=== PATIENT | male | born 1975 | race Two or more races ===

== ENCOUNTER 2018-04-14 01:30 | Emergency (ER) | payer SELFPAY ==
[2018-04-14 01:37] VITALS: BP 117/82
--- NOTE | 2018-04-14 01:48 | ED Physician Documentation ---
History of Present Illness - Stated complaint Stated Complaint: FEVER/NAUSEA - Chief complaint Chief Complaint: Resp - History obtained from History obtained from: Patient - History of Present Illness Timing: How many days ago (1-2) Pain level now: 0 Improved by: no ameliorating factors Worsened by: no exacerbating factors - Additonal information Additional information: c/o 1-2 days of chills/sweats, diffuse myalgias, cough. Tmax 100.9. He describes post-tussive vomiting but is tolerating PO. He also describes poor appetite. Review of Systems Constitutional: reports: Fever, Chills, Myalgias, Sweats Cardiac: denies: Chest pain / pressure Respiratory: reports: Cough. denies: Dyspnea GI: reports: Vomiting (post-tussive vomiting). denies: Abdominal Pain, Nausea : reports: Frequency. denies: Dysuria Skin: denies: Rash Musculoskeletal: denies: Neck pain, Back pain PD PAST MEDICAL HISTORY - Past Medical History Cardiovascular: None Respiratory: None Endocrine/Autoimmune: None GI: GERD : None HEENT: None Psych: None Musculoskeletal: None Derm: None - Past Surgical History Past Surgical History: No - Present Medications Home Medications: Ambulatory Orders Medication Instructions Recorded Confirmed Omeprazole [PriLOSEC] 1 mg PO DAILY 08/19/15 08/19/15 Ondansetron Odt [Zofran] 4 mg TL Q6H PRN #10 tablet 08/19/15 raNITIdine [Zantac] 150 mg PO BID #60 tablet 08/19/15 - Allergies Allergies/Adverse Reactions: Allergies Allergy/AdvReac Type Severity Reaction Status Date / Time No Known Drug Allergies Allergy Verified 04/14/18 01:37 - Social History Does the pt smoke?: Yes Smoking Status: Current every day smoker Does the pt drink ETOH?: No Does the pt have substance abuse?: No - Immunizations Immunizations are current?: No - POLST Patient has POLST: No PD ED PE NORMAL - Vitals Vital signs reviewed: Yes - General General: Alert and oriented X 3, No acute distress (NAD for most of H+P except for brief episodes (lasting 10-15 seconds) of sudden violent shaking during which he remains awake, alert, and responsive, says he feels "chilled to the bone" during these episodes), Well developed/nourished - HEENT HEENT: Moist mucous membranes, Pharynx benign - Neck Neck: Supple, no meningeal sign - Cardiac Cardiac: RRR, No murmur, No gallop, No rub - Respiratory Respiratory: No respiratory distress, Clear bilaterally - Abdomen Abdomen: Soft, Non tender - Back Back: No CVA TTP - Derm Derm: Normal color, Warm and dry, No rash Results - Vitals Vitals: Vital Signs - 24 hr 04/14/18 01:35 Temperature 366 C H Heart Rate 75 Respiratory 18 Rate Blood Pressure 117/82 H O2 Saturation 98 Oxygen O2 Source Room air PD MEDICAL DECISION MAKING - ED course Complexity details: considered differential, d/w patient ED course: [employer] cough, clear lungs to auscultation bilaterally with normal pulse ox (98% room air). suspect bronchitis although with his c/o shaking chills, fever, and generalized myalgias, I recommended flu swab. Plan was to perform flu swab and then discharge with robitussin AC rx (and possibly Tamiflu, depending on flu swab result). Patient was agreeable with this and expressed satisfaction with plan (he thanked me for taking time to explain options with him). However, while I was evaluating another patient in ED, he suddenly decided to leave ED. He says he feels nothing is being done to make him more comfortable and refuses to elaborate as to what he means by this or what he feels can be done to make him more comfortable at this time. Departure - Departure Disposition: 07 Against Medical Advice Clinical Impression: Bronchitis Condition: Stable Discharge Date/Time: 04/14/18 02:35
== END 2018-04-14 02:35 | disposition left against medical advice (07) ==
LOC: ED 01:30
DX: F17.200 Nicotine dependence, unspecified, uncomplicated (principal); J40 Bronchitis, not specified as acute or chronic; Z53.20 Procedure and treatment not carried out because of patient's decision for unspecified reasons
CPT/HCPCS: 99282; 99283

== ENCOUNTER 2022-05-19 07:46 | Emergency (ER) | payer SELFPAY ==
[2022-05-19 08:38] LABS: BASOPHILS # (AUTO) 0.1 10^3/uL (0.0-0.1); BASOPHILS % (AUTO) 0.7 %; EOSINOPHILS % (AUTO) 0.5 %; HCT - HEMATOCRIT 43.2 % (42.0-52.0); HGB - HEMOGLOBIN 14.5 g/dL (14.0-18.0); LYMPHOCYTES # (AUTO) 1.9 10^3/uL (1.5-3.5); LYMPHOCYTES % (AUTO) 25.1 %; MEAN CORPUSCULAR HEMOGLOBIN 30.9 pg (27.0-31.0); MEAN CORPUSCULAR HGB CONC 33.6 g/dL (32.0-36.0); MEAN CORPUSCULAR VOLUME 92.1 fL (80.0-94.0); MEAN PLATELET VOLUME 9.7 fL (7.4-11.4); MONOCYTES # (AUTO) 0.4 10^3/uL (0.0-1.0); MONOCYTES % (AUTO) 5.1 %; NEUTROPHILS # (AUTO) 5.2 10^3/uL (1.5-6.6); NEUTROPHILS % (AUTO) 68.3 %; PLT - PLATELET COUNT 239 10^3/uL (130-450); RED BLOOD COUNT 4.69 10^6/uL (4.70-6.10); RED CELL DISTRIBUTION WIDTH 12.1 % (12.0-15.0); WHITE BLOOD COUNT 7.7 x10^3/uL (4.8-10.8)
[2022-05-19 08:50] LABS: ALBUMIN 4.1 g/dL (3.2-5.5); ALBUMIN/GLOBULIN RATIO 1.4 (1.0-2.2); BILIRUBIN,TOTAL 0.8 mg/dL (0.2-1.0); CREATININE 0.8 mg/dL (0.6-1.2)
--- NOTE | 2022-05-19 09:11 | XRAY Report ---
PROCEDURE: Chest 1 View X-Ray INDICATIONS: CP TECHNIQUE: One view of the chest was acquired. COMPARISON: None. FINDINGS: Surgical changes and devices: None. Lungs and pleura: No pleural effusions or pneumothorax. Lungs are clear. Mediastinum: Mediastinal contours appear normal. Heart size is normal. Bones and chest wall: No suspicious bony lesions. Overlying soft tissues appear unremarkable. IMPRESSION: No evidence acute pulmonary process. Reviewed by: Woodrow Jerez MD on 05/19/2022 9:10 AM [facility] Approved by: Woodrow Jerez MD on 05/19/2022 9:10 AM [facility] Station ID: [id number]
--- NOTE | 2022-05-19 09:36 | ED Physician Documentation ---
PD HPI CHEST PAIN - Stated complaint Stated Complaint: CHEST DISCOMFORT - Chief complaint Chief Complaint: Cardiac - History obtained from History obtained from: Patient - Additional information Additional information: Pt is a 46-year-old male presenting for evaluation of chest heaviness that has been intermittent since . Patient has noticed that his symptoms get worse during periods when he is smoking cigarettes and get better when he is cutting down on his smoking. This more recent episode has started since Tuesday. It has been constant. It is worse when he is actively smoking a cigarette. Pain does not radiate. He denies feeling short of breath. He has never been evaluated for this before and he denies any worsening causing him to come for evaluation today.He denies any vomiting, fever, hemoptysis, leg swelling or pain.He reports chronic abdominal issues related to numerous food intolerances but denies any current pain, nausea or recent vomiting. Review of Systems Constitutional: denies: Fever Cardiac: reports: Chest pain / pressure Respiratory: denies: Dyspnea, Cough GI: denies: Abdominal Pain, Vomiting, Diarrhea : denies: Dysuria Musculoskeletal: denies: Back pain Neurologic: denies: Headache PD PAST MEDICAL HISTORY - Past Medical History Past Medical History: Yes Cardiovascular: None Respiratory: None Endocrine/Autoimmune: None GI: GERD : None HEENT: None Psych: None Musculoskeletal: None Derm: None - Past Surgical History Past Surgical History: No - Present Medications Home Medications: Ambulatory Orders Medication Instructions Recorded Confirmed Omeprazole [PriLOSEC] 1 mg PO DAILY 08/19/15 05/19/22 EPINEPHrine [Epinephrine] 0.3 mg IJ ONCE PRN #2 dis.syr 11/03/21 05/19/22 - Allergies Allergies/Adverse Reactions: Allergies Allergy/AdvReac Type Severity Reaction Status Date / Time No Known Drug Allergies Allergy Verified 05/19/22 08:03 - Social History Does the pt smoke?: Yes Smoking Status: Current every day smoker Does the pt drink ETOH?: No Does the pt have substance abuse?: No - Immunizations Immunizations are current?: No - POLST Patient has POLST: No PD ED PE NORMAL - General General: Alert and oriented X 3, No acute distress, Well developed/nourished - HEENT HEENT: Atraumatic - Neck Neck: Supple, no meningeal sign - Cardiac Cardiac: RRR - Respiratory Respiratory: No respiratory distress, Clear bilaterally - Abdomen Abdomen: Normal bowel sounds, Soft, Non tender, Non distended - Derm Derm: Warm and dry - Extremities Extremities: No edema, No calf tenderness / cord Results - Vitals Vitals: Vital Signs - 24 hr 05/19/22 05/19/22 07:57 09:41 Temperature 37.1 C 36.8 C Heart Rate 53 L 49 L Respiratory 14 15 Rate Blood Pressure 128/82 H 114/70 O2 Saturation 100 99 Oxygen O2 Source Room air - EKG (time done) 0835 Rate: Rate (enter#) (48) Rhythm: Sinus bradycardia Intervals: No: Prolonged QT Ischemia: No: ST elevation c/w ischemia Compare to prior EKG: Old EKG unavailable - Labs Labs: Laboratory Tests 05/19/22 05/19/22 05/19/22 08:31 08:31 08:31 WBC 7.7 RBC 4.69 L Hgb 14.5 Hct 43.2 MCV 92.1 MCH 30.9 MCHC 33.6 RDW 12.1 Plt Count 239 MPV 9.7 Neut # (Auto) 5.2 Lymph # (Auto) 1.9 [place] # (Auto) 0.4 Eos # (Auto) 0.0 Baso # (Auto) 0.1 Absolute Nucleated RBC 0.00 Nucleated RBC % 0.0 Sodium 137 Potassium 4.0 Chloride 104 Carbon Dioxide 25 Anion Gap 8.0 BUN 11 Creatinine 0.8 Estimated GFR (MDRD) 103 Glucose 110 H Calcium 9.0 Total Bilirubin 0.8 AST 23 ALT 22 Alkaline Phosphatase 65 Troponin I High Sens 2.3 Total Protein 7.0 Albumin 4.1 Globulin 2.9 Albumin/Globulin Ratio 1.4 PD Medical Decision Making - ED course Complexity details: reviewed results, re-evaluated patient ED course: Patient presenting for evaluation of chest pain that has been intermittent since with no worsening. He has noted an association that his symptoms worsen when he is smoking. His EKG is reviewed here today. He has no other exam findings to suggest pericarditis and I feel this to be atypical for p ericarditis. His labs are also reviewed and his high-sensitivity troponin is negative. His symptoms have been ongoing for days and I do not think needs a repeat. Again his symptoms also seem atypical for ACS. His chest x-ray was reviewed by me with no acute findings. He has a PERC negative. I doubt a dissection. Due to pain that is not worsening or migratory.Patient has been resting comfortably here. Advised need for close follow-up with primary care doctor. He is advised on concerning symptoms to return for. Departure - Departure Disposition: 01 Home, Self Care Clinical Impression: Chest pain Condition: Stable Instructions: ED Chest Pain Atypical Unkn Cause, ED Smoking Cessation Follow-Up: Perez Love MD [Provider Admit Priv/Credential] - Comments: You were evaluated for chest pain. I would recommend close follow-up with your primary care doctor as you may need further testing such as a stress test To check your heart. I think it is also great that you are motivated to quit smoking and A primary care doctor can help you achieve this goal. If you have any new or worsening symptoms please consider return to the emergency department. Discharge Date/Time: 05/19/22 09:49
[2022-05-19 09:41] VITALS: BP 114/70
== END 2022-05-19 09:49 | disposition home or self-care (01) ==
LOC: ED 07:46
DX: R07.9 Chest pain, unspecified (principal); F17.210 Nicotine dependence, cigarettes, uncomplicated
CPT/HCPCS: 36415; 80053; 84484; 85025; 93005; 99284

== ENCOUNTER 2022-09-21 01:18 | Emergency (ER) | payer OTHER ==
[2022-09-21] MEDS ORDERED: ONDANSETRON ODT 4 MG TABLET TL STA (01:59)
--- NOTE | 2022-09-21 02:25 | ED Physician Documentation ---
PD HPI NVD - Stated complaint Stated Complaint: N/V/D - Chief complaint Chief Complaint: Abd Pain - History obtained from History obtained from: Patient - History of Present Illness Timing - onset: Today Timing - duration: Hours Timing - details: Gradual onset, Still present Associated symptoms: Abdominal pain, Loss of appetite Contributing factors: Bad food. No: Sick contact, Travel, Recent antibiotics, Alcohol use Improved by: Laying still Worsened by: Eating Similar symptoms before: Diagnosis (gastritis) Recently seen: Not recently seen - Additonal information Additional information: 46-year-old male with a history chronic of abdominal pain, nausea and vomiting that is episodic presents to the emergency department today with nausea and abdominal pain. He reports that since he was 6 years old he has had problems with his stomach and he has been in to see a primary care doctor about this he was started on some Carafate at 1 point which she took for about 3-1/2 weeks. He did not have complete resolution of his symptoms. He reports periodically having issue with vomiting and he does indicate that he uses cannabis but he does not get relief from hot water. He has never heard of cannabis hyperemesis. He indicates that his problems with his stomach began long before he ever used cannabis. He is in the process of referral for endoscopy.The patient has been on Prilosec and Carafate previously but continues to have issues with specific foods. He has a diet which is avoiding in specific foods he feels he is intolerant to gluten and sugar. Review of Systems Constitutional: denies: Fever, Chills Eyes: denies: Decreased vision, Photophobia Ears: denies: Ear pain Nose: denies: Rhinorrhea / runny nose, Congestion Throat: denies: Sore throat Cardiac: denies: Chest pain / pressure, Palpitations Respiratory: denies: Dyspnea, Cough GI: reports: Abdominal Pain, Nausea, Vomiting, Diarrhea. denies: Constipation : denies: Dysuria, Frequency PD PAST MEDICAL HISTORY - Past Medical History Cardiovascular: None Respiratory: None Endocrine/Autoimmune: None GI: GERD : None HEENT: None Psych: None Musculoskeletal: None Derm: None - Past Surgical History Past Surgical History: No - Present Medications Home Medications: Ambulatory Orders Medication Instructions Recorded Confirmed Omeprazole [PriLOSEC] 1 mg PO DAILY 08/19/15 05/19/22 EPINEPHrine [Epinephrine] 0.3 mg IJ ONCE PRN #2 dis.syr 11/03/21 05/19/22 Promethazine [Phenergan] 25 mg PO Q6H PRN #10 tab 09/21/22 - Allergies Allergies/Adverse Reactions: Allergies Allergy/AdvReac Type Severity Reaction Status Date / Time No Known Drug Allergies Allergy Verified 05/19/22 08:03 - Social History Does the pt smoke?: Yes Smoking Status: Current every day smoker Does the pt drink ETOH?: No Does the pt have substance abuse?: No - Immunizations Immunizations are current?: No - POLST Patient has POLST: No PD ED PE NORMAL - Vitals Vital signs reviewed: Yes (Hypertensive mild) - General General: Alert and oriented X 3, Well developed/nourished, Other (Corrugated tone and flattened affect consistent with pain 46-year-old male pillows appears older than his stated age) - HEENT HEENT: Atraumatic, PERRL, EOMI - Neck Neck: Supple, no meningeal sign, No bony TTP - Cardiac Cardiac: RRR, No murmur - Respiratory Respiratory: No respiratory distress, Clear bilaterally - Abdomen Abdomen: Normal bowel sounds, Soft, Non tender, Non distended, No organomegaly - Back Back: No CVA TTP, No spinal TTP - Derm Derm: Normal color, Warm and dry, No rash - Extremities Extremities: No deformity, No edema - Neuro Neuro: Alert and oriented X 3, life agent 2-12 intact, No motor deficit, No sensory deficit, Normal speech Eye Opening: Spontaneous Motor: Obeys Commands Verbal: Oriented GCS Score: 15 - Psych Psych: Normal mood Results - Vitals Vitals: Vital Signs - 24 hr 09/21/22 09/21/22 01:28 04:03 Temperature 36.8 C Heart Rate 51 L 61 Respiratory 18 15 Rate Blood Pressure 117/94 H 122/84 H O2 Saturation 99 97 Oxygen O2 Source Room air - Labs Labs: Laboratory Tests 09/21/22 09/21/22 02:56 02:56 WBC 5.5 RBC 5.17 Hgb 15.8 Hct 47.1 MCV 91.1 MCH 30.6 MCHC 33.5 RDW 11.9 L Plt Count 195 MPV 10.1 Neut # (Auto) [employer] Lymph # (Auto) [employer] Maury # (Auto) [employer] Eos # (Auto) [employer] Baso # (Auto) [employer] Absolute Nucleated RBC [employer] Total Counted 100 Band Neuts % (Manual) 2 Abnorm Lymph % (Manual) 2 Nucleated RBC % [employer] Neutrophils # (Manual) 2.4 Lymphocytes # (Manual) 2.6 Monocytes # (Manual) 0.4 Eosinophils # (Manual) 0.0 Basophils # (Manual) 0.1 Differential Comment MANUAL DIFFERENTIAL WBC Morphology NORMAL APPEARANCE Platelet Estimate NORMAL (130-450,000) Platelet Morphology NORMAL APPEARANCE RBC Morph Micro Appear NORMAL APPEARANCE Sodium 140 Potassium 4.4 Chloride 106 Carbon Dioxide 25 Anion Gap 9.0 BUN 14 Creatinine 0.8 Estimated GFR (MDRD) 103 Glucose 105 H Calcium 8.8 Total Bilirubin 0.5 AST 51 H ALT 57 Alkaline Phosphatase 71 Total Protein 7.6 Albumin 4.3 Globulin 3.3 Albumin/Globulin Ratio 1.3 Lipase 27 Procedures - IVC sono (time) 0150 Bedside IVC sono: IVC measures (cm) (1.24), IVC collapsed c insp (cm) (0.61), Dehydration (minimal and with normal collapsibilty index.) PD Medical Decision Making - ED course Complexity details: considered differential, d/w patient Reviewed Lab Results: We reviewed a complete blood count showing a normal white blood cell count normal hemoglobin hematocrit and platelets with normal indices. We reviewed the patient's chemistries which showed normal electrolytes normal kidney and liver function no evidence of pancreatitis. These benign-appearing laboratory results suggest that despite the pain and nausea no specific abnormality exists. I interrogated the inferior vena cava with POCUS and found the patient to have a normal collapsibility index and have only mildly decreased vessel size. He appears mildly dehydrated and does not require intravenous fluid. ED course: 46-year-old male with problems with his stomach chronically related to specific foods reports eating significant amount of arthur and having an issue with pain nausea and vomiting. He does not appear significantly dehydrated on interrogation of the inferior vena cava with POCUS and our efforts were turned toward relieving his nausea. He did not have much luck with use of Zofran under his tongue and he was administered Phenergan 10 mg orally which resolved his nausea. He was thankful for this. He is discharged with a prescription for some Phenergan and a recommendation to continue pursuit of endoscopy. Departure - Departure Disposition: 01 Home, Self Care Clinical Impression: Recurrent vomiting Gastritis Qualifiers: Gastritis type: unspecified gastritis Chronicity: chronic Gastritis bleeding: without bleeding Qualified Code(s): K29.50 - Unspecified chronic gastritis without bleeding Instructions: ED Diet Vomiting Diarrhea, ED PUD Vs Gastritis Follow-Up: [facility] [Provider Group] Prescriptions: Promethazine [Phenergan] 25 mg PO Q6H PRN #10 tab PRN Reason: Nausea / Vomiting Comments: [place], today it looks like you have a gastritis or irritation to the lining of your stomach and my recommendation for that is to use some Pepcid AC on a regular basis until your stomach is feeling better. I have E scribed some Phenergan to the [facility] in [place] for you to use for nausea when this occurs. My recommendation is to follow-up for scoping as previously planned. Discharge Date/Time: 09/21/22 04:04
[2022-09-21] MEDS ORDERED: PROMETHAZINE 25 MG TABLET PO STA (02:45)
[2022-09-21 03:01] LABS: BASOPHILS % (AUTO) 0.5 %; EOSINOPHILS % (AUTO) 0.7 %; HCT - HEMATOCRIT 47.1 % (42.0-52.0); HGB - HEMOGLOBIN 15.8 g/dL (14.0-18.0); LYMPHOCYTES % (AUTO) 46.6 %; MEAN CORPUSCULAR HEMOGLOBIN 30.6 pg (27.0-31.0); MEAN CORPUSCULAR HGB CONC 33.5 g/dL (32.0-36.0); MEAN CORPUSCULAR VOLUME 91.1 fL (80.0-94.0); MEAN PLATELET VOLUME 10.1 fL (7.4-11.4); MONOCYTES % (AUTO) 12.3 %; NEUTROPHILS % (AUTO) 39.7 %; PLT - PLATELET COUNT 195 10^3/uL (130-450); RED BLOOD COUNT 5.17 10^6/uL (4.70-6.10); RED CELL DISTRIBUTION WIDTH 11.9 % (12.0-15.0); WHITE BLOOD COUNT 5.5 x10^3/uL (4.8-10.8)
[2022-09-21 03:21] LABS: ALBUMIN 4.3 g/dL (3.2-5.5); ALBUMIN/GLOBULIN RATIO 1.3 (1.0-2.2); BILIRUBIN,TOTAL 0.5 mg/dL (0.2-1.0); CALCIUM 8.8 mg/dL (8.5-10.3); CREATININE 0.8 mg/dL (0.6-1.2); POTASSIUM 4.4 mmol/L (3.5-5.0); TOTAL PROTEIN 7.6 g/dL (6.7-8.2)
[2022-09-21 03:25] LABS: ABNORMAL LYMPHS % (MANUAL) 2 %; BAND NEUTROPHILS % (MANUAL) 2 %; BASOPHILS # (MANUAL) 0.1 10^3/uL (0-0.1); BASOPHILS % (MANUAL) 1 %; LYMPHOCYTES # (MANUAL) 2.6 10^3/uL (1.5-3.5); LYMPHOCYTES % (MANUAL) 46 %; MONOCYTES # (MANUAL) 0.4 10^3/uL (0.0-1.0); NEUTROPHILS # (MANUAL) 2.4 10^3/uL (1.5-6.6); PLATELET ESTIMATE, MANUAL NORMAL (130-450,000) (NORMAL); PLATELET MORPHOLOGY NORMAL APPEARANCE (NORMAL); RBC MORPHOLOGY (MULTIPLE) NORMAL APPEARANCE (NORMAL); WBC MORPHOLOGY (MULTIPLE) NORMAL APPEARANCE (NORMAL)
[2022-09-21 03:26] LABS: DIFFERENTIAL COMMENT MANUAL DIFFERENTIAL
[2022-09-21 04:05] VITALS: BP 122/84
== END 2022-09-21 04:04 | disposition home or self-care (01) ==
LOC: ED 01:18
DX: K29.50 Unspecified chronic gastritis without bleeding (principal); E86.0 Dehydration; F17.200 Nicotine dependence, unspecified, uncomplicated
CPT/HCPCS: 36415; 80053; 83690; 85025; 99283; 99284; Q0162; Q0169

== ENCOUNTER 2022-11-05 07:50 | Day surgery (SDC) | payer OTHER ==
[2022-11-05] MEDS ORDERED: LACTATED RINGERS 1,000 ML IV ONE ×2 (08:05→10:26)
--- NOTE | 2022-11-05 08:46 | ANESTHESIA ---
Pre-Anesthesia VS, & Labs - Diagnosis epigastric pain, colon screening exam - Procedure EGD and colonoscopy Vital Signs: Temp Pulse Resp BP Pulse Ox O2 Flow Rate 36.3 C L 57 L 16 105/70 95 0 11/05/22 08:05 11/05/22 08:05 11/05/22 08:05 11/05/22 08:05 11/05/22 08:05 11/05/22 08:05 Height: 5 ft 8 in Weight (kg): 61.3 kg Body Mass Index: 20.5 BMI Classification: Normal - NPO >8 hours Home Medications and Allergies Home Medications: Ambulatory Orders Sucralfate [Carafate] 1 tablet PO ACHS 11/04/22 Omeprazole [PriLOSEC] 20 mg PO DAILY 08/19/15 Sucralfate [Carafate] 1 tablet PO ACHS 11/04/22 Allergies/Adverse Reactions: Allergies Allergy/AdvReac Type Severity Reaction Status Date / Time No Known Drug Allergies Allergy Verified 11/05/22 08:24 Anes History & Medical History - Anesthetic History Anesthesia Complications: reports: No previous complications - Medical History Cardiovascular: reports: None Pulmonary: reports: None Gastrointestinal: reports: GERD Urinary: reports: Kidney stones Neuro: reports: Other (seizures as a teenager. Last seizure >20 years ago) Musculoskeletal: reports: None Endocrine/Autoimmune: reports: None Blood Disorders: reports: None Skin: reports: None Smoking Status: Current every day smoker (1/2 pack per day x 25 years) Psychosocial: reports: Cannabis (daily smoking) History of Cancer?: No - Surgical History Urologic: reports: Ureterolithotomy (stones) Exam General: Alert, Oriented x3, Cooperative, No acute distress Dental: WNL Mouth Openin Fingerbreadth Neck Mobility: Normal Mallampati classification: II Thyromental Distance: 4-6 cm Mental/Cognitive Status: Alert/Oriented X3, Normal for patient Plan Anesthesia Type: General, Total IV Consent for Procedure(s) Verified and Reviewed: Yes Code Status: Attempt Resuscitation ASA classification: 2-Mild systemic disease Is this case an emergency?: No
[2022-11-05] MEDS ORDERED: LIDOCAINE-PF 2% 10 ML AMP SUBQ ONE (09:02)
[2022-11-05] MEDS ORDERED: PROPOFOL 500 MG/50 ML 500 MG/50 ML VIAL ONE (09:02)
[2022-11-05] MEDS ORDERED: PROPOFOL 200 MG/20 ML VIAL IVP ONE (09:09)
--- NOTE | 2022-11-05 09:25 | HISTORY & PHYSICAL EXAMINATION ---
Chief Complaint - Chief Complaint Chief Complaint: here for egd and colonoscopy History of Present Illness - History Obtained From Records Reviewed: yes History obtained from: pt Exam Limitations: none - History of Present Illness HPI Comment/Other: history epigastric pain and possible celiac. no lower gi problems History - Past Medical History Cardiovascular: reports: None Respiratory: reports: None Neuro: reports: Other (seizures as a teenager. Last seizure >20 years ago) Endocrine/Autoimmune: reports: None GI: reports: GERD : reports: Kidney stones HEENT: reports: None Psych: reports: None Musculoskeletal: reports: None Derm: reports: None MRSA Hx?: No - POLST Patient has POLST: No Meds/Allgy - Home Medications Home Medications: Ambulatory Orders Medication Instructions Recorded Confirmed Omeprazole [PriLOSEC] 20 mg PO DAILY 08/19/15 11/04/22 Sucralfate [Carafate] 1 tablet PO ACHS 11/04/22 11/04/22 - Allergies Allergies/Adverse Reactions: Allergies Allergy/AdvReac Type Severity Reaction Status Date / Time No Known Drug Allergies Allergy Verified 11/05/22 08:24 Review of Systems - Other Findings Other Findings: 10 pt ros as above otherwise unremarkable Exam - Vital Signs Reviewed Vital Signs: Yes Vital Signs: Vital Signs x48h Temp Pulse Resp BP Pulse Ox O2 Flow Rate 11/05/22 08:05 36.3 C L 57 L 16 105/70 95 0 - Physical Exam General Appearance: positive: No acute distress, Alert Eyes Bilateral: positive: PERRL, EOMI, No scleral icterus ENT: positive: No signs of dehydration Neck: positive: No JVD, Trachea midline Respiratory: positive: No respiratory distress Cardiovascular: positive: Regular rate & rhythm Abdomen: positive: No distention Neurologic/Psychiatric: positive: Oriented x3 Conclusion/Plan - Problem List (1) Gastritis Conclusion/Plan: plan egd with biopsies plan colonoscopy for colon cancer screening. parq held and consent obtained
[2022-11-05] MEDS ORDERED: MIDAZOLAM 2 MG/2 ML VIAL ONE (09:41)
[2022-11-05 10:52] VITALS: BP 105/72
--- NOTE | 2022-11-05 11:11 | ANESTHESIA POST OP EVALUATION ---
Anesthesia Post Eval - Post Anesthesia Eval Vitals: Last Vital Signs Temp 36.2 C L 11/05/22 10:26 Pulse 54 L 11/05/22 10:39 Resp 15 11/05/22 10:39 BP 105/72 11/05/22 10:39 Pulse Ox 99 11/05/22 10:39 O2 Flow Rate 0 11/05/22 08:05 CV Function Including HR & BP: Stable Pain Control: Satisfactory Nausea & Vomiting: Negative Mental Status: Baseline Respiratory Status: Airway Patent Hydration Status: Satisfactory Anesthesia Complications: None
== END 2022-11-05 07:51 | disposition home or self-care (01) ==
LOC: SDS 07:50
PROVIDERS: ATTEND Surgery
PROC: 0DB58ZX Excision of Esophagus, Via Natural or Artificial Opening Endoscopic, Diagnostic (ICD-10-PCS; 2022-11-05)
PROC: 0DBL8ZX Excision of Transverse Colon, Via Natural or Artificial Opening Endoscopic, Diagnostic (ICD-10-PCS; 2022-11-05)
PROC: 0DB48ZX Excision of Esophagogastric Junction, Via Natural or Artificial Opening Endoscopic, Diagnostic (ICD-10-PCS; principal; 2022-11-05 09:00)
PROC: 0DB68ZX Excision of Stomach, Via Natural or Artificial Opening Endoscopic, Diagnostic (ICD-10-PCS; 2022-11-05 09:00)
DX: Z12.11 Encounter for screening for malignant neoplasm of colon (principal); K21.9 Gastro-esophageal reflux disease without esophagitis; K20.90 Esophagitis, unspecified without bleeding; D12.3 Benign neoplasm of transverse colon; F17.200 Nicotine dependence, unspecified, uncomplicated
CPT/HCPCS: 43239; 45385; J7120

== ENCOUNTER 2023-02-17 17:02 | Emergency (ER) | payer OTHER ==
--- NOTE | 2023-02-17 17:19 | ED Physician Documentation ---
PD HPI CHEST PAIN - Stated complaint Stated Complaint: CHEST PX - Chief complaint Chief Complaint: Cardiac - History obtained from History obtained from: Patient - Additional information Additional information: 47-year-old gentleman referred from clinic for chest pain. He has had chest pain for a year. It is nonexertional. Does get worse when he smokes cigarettes or inhales deeply. It is a dull pain in the left precordium, otherwise nonradiating. He has it most days but not all day. Denies pedal edema, calf pain, shortness of breath. PD PAST MEDICAL HISTORY - Past Medical History Cardiovascular: None Respiratory: None Neuro: Other Endocrine/Autoimmune: None GI: GERD : Kidney stones HEENT: None Psych: None Musculoskeletal: None Derm: None - Past Surgical History Past Surgical History: No - Present Medications Home Medications: Ambulatory Orders Medication Instructions Recorded Confirmed Omeprazole [PriLOSEC] 20 mg PO DAILY 08/19/15 11/04/22 Sucralfate [Carafate] 1 tablet PO ACHS 11/04/22 11/04/22 - Allergies Allergies/Adverse Reactions: Allergies Allergy/AdvReac Type Severity Reaction Status Date / Time No Known Drug Allergies Allergy Verified 11/05/22 08:24 - Social History Does the pt smoke?: Yes Smoking Status: Current every day smoker Does the pt drink ETOH?: No Does the pt have substance abuse?: No - Immunizations Immunizations are current?: No - POLST Patient has POLST: No PD ED PE NORMAL - Vitals Vital signs reviewed: Yes - General General: Alert and oriented X 3, No acute distress - Neck Neck: Supple, no meningeal sign, No bony TTP - Cardiac Cardiac: RRR, No murmur - Respiratory Respiratory: No respiratory distress, Clear bilaterally - Abdomen Abdomen: Non tender - Extremities Extremities: No edema, No calf tenderness / cord - Neuro Neuro: Alert and oriented X 3, Normal speech - Psych Psych: Normal mood, Normal affect Results - Vitals Vitals: Vital Signs - 24 hr 02/17/23 17:11 Temperature 36.6 C Heart Rate 66 Respiratory 18 Rate Blood Pressure 138/79 H O2 Saturation 97 Oxygen O2 Source Room air - EKG (time done) 1706 EKG releavant findings:: EKG personally interpreted by author of this note. Relevant findings are: Rate: Rate (enter#) (60) Rhythm: NSR [place]: Normal Intervals: Normal NC QRS: Normal Ischemia: ST elevation c/w repol. No: ST elevation c/w ischemia, ST depression Compare to prior EKG: Unchanged from prior EKG (Overall morphology is very similar from May of this year) Computer interpretation: Agree with computer - Labs Labs: Laboratory Tests 02/17/23 02/17/23 17:10 17:10 WBC 7.8 RBC 4.95 Hgb 15.1 Hct 44.9 MCV 90.7 MCH 30.5 MCHC 33.6 RDW 11.9 L Plt Count 240 MPV 9.8 Neut # (Auto) 3.7 Lymph # (Auto) 3.1 [place] # (Auto) 0.8 Eos # (Auto) 0.3 Baso # (Auto) 0.1 Absolute Nucleated RBC 0.00 Nucleated RBC % 0.0 Sodium 137 Potassium 4.1 Chloride 102 Carbon Dioxide 28 Anion Gap 7.0 BUN 27 H Creatinine 0.8 Estimated GFR (MDRD) 103 Glucose 93 Calcium 9.6 Total Bilirubin 0.8 AST 16 ALT 15 Alkaline Phosphatase 78 Troponin I High Sens 2.5 Total Protein 7.1 Albumin 4.8 Globulin 2.3 Albumin/Globulin Ratio 2.1 Lipase < 10 L PD Medical Decision Making - ED course ED course: 47-year-old gentleman with 1 years worth of atypical nonexertional chest pain with negative biomarkers, normal CBC and CMP and unchanged EKG here showing repolarization pattern. Had a similar negative work-up in May of this year. His nurse practitioner has already ordered a stress test which is appropriate. Departure - Departure Disposition: Home, Self Care Clinical Impression: Chest pain Qualifiers: Chest pain type: chest pain on breathing Qualified Code(s): R07.1 - Chest pain on breathing; R07.81 - Pleurodynia Condition: Good Record reviewed to determine appropriate education?: Yes Instructions: ED Chest Pain Atypical Unkn Cause Comments: Your primary care nurse practitioner has already ordered appropriate follow-up studies for you, you should follow her treatment plan. Return for new or worsening symptoms. Continue your efforts to quit smoking. No evidence of active heart disease on tonight's testing. Return if the nature or pattern of the chest pain changes. Forms: PCP List
[2023-02-17 17:25] LABS: BASOPHILS # (AUTO) 0.1 10^3/uL (0.0-0.1); BASOPHILS % (AUTO) 1.3 %; EOSINOPHILS # (AUTO) 0.3 10^3/uL (0.0-0.7); EOSINOPHILS % (AUTO) 3.3 %; HCT - HEMATOCRIT 44.9 % (42.0-52.0); HGB - HEMOGLOBIN 15.1 g/dL (14.0-18.0); LYMPHOCYTES # (AUTO) 3.1 10^3/uL (1.5-3.5); MEAN CORPUSCULAR HEMOGLOBIN 30.5 pg (27.0-31.0); MEAN CORPUSCULAR HGB CONC 33.6 g/dL (32.0-36.0); MEAN CORPUSCULAR VOLUME 90.7 fL (80.0-94.0); MEAN PLATELET VOLUME 9.8 fL (7.4-11.4); MONOCYTES # (AUTO) 0.8 10^3/uL (0.0-1.0); MONOCYTES % (AUTO) 9.7 %; NEUTROPHILS # (AUTO) 3.7 10^3/uL (1.5-6.6); NEUTROPHILS % (AUTO) 46.6 %; PLT - PLATELET COUNT 240 10^3/uL (130-450); RED BLOOD COUNT 4.95 10^6/uL (4.70-6.10); RED CELL DISTRIBUTION WIDTH 11.9 % (12.0-15.0); WHITE BLOOD COUNT 7.8 x10^3/uL (4.8-10.8)
[2023-02-17] MEDS: ASPIRIN CHEW 81 MG TABLET PO STA (17:36)
[2023-02-17 17:44] LABS: TROPONIN I HIGH SENSITIVITY 2.5 ng/L (2.3-19.7)
[2023-02-17 17:47] LABS: ALBUMIN 4.8 g/dL (3.2-5.5); ALBUMIN/GLOBULIN RATIO 2.1 (1.0-2.2); ALKALINE PHOSPHATASE 78 IU/L (42-121); ALT ALANINE AMINOTRANSFERASE 15 IU/L (10-60); AST ASPARTATE AMINOTRANSFERASE 16 IU/L (10-42); BILIRUBIN,TOTAL 0.8 mg/dL (0.2-1.0); BUN - BLOOD UREA NITROGEN 27 mg/dL (6-20); CALCIUM 9.6 mg/dL (8.5-10.3); CARBON DIOXIDE - CO2 28 mmol/L (21-32); CHLORIDE 102 mmol/L (101-111); CREATININE 0.8 mg/dL (0.6-1.3); GFR - MDRD 103 (>89); GLUCOSE 93 mg/dL (74-104); POTASSIUM 4.1 mmol/L (3.5-4.5); SODIUM 137 mmol/L (135-145); TOTAL PROTEIN 7.1 g/dL (6.4-8.9)
[2023-02-17 18:01] LABS: LIPASE < 10 U/L (11-82)
--- NOTE | 2023-02-17 18:01 | XRAY Report ---
PROCEDURE: Chest 1 View X-Ray INDICATIONS: Chest pain TECHNIQUE: One view of the chest was acquired. COMPARISON: 05/19/2022. FINDINGS: Surgical changes and devices: None. Lungs and pleura: No pleural effusions or pneumothorax. Lungs are clear. Mediastinum: Mediastinal contours appear normal. Heart size is normal. Bones and chest wall: No suspicious bony lesions. Overlying soft tissues appear unremarkable. IMPRESSION: No acute cardiopulmonary process. Reviewed by: Bk Ware MD on 02/17/2023 6:00 PM [facility] Approved by: Bk Ware MD on 02/17/2023 6:00 PM [facility] Station ID: [id number]
[2023-02-17 18:27] VITALS: BP 119/71; O2SAT 95
== END 2023-02-17 18:21 | disposition home or self-care (01) ==
LOC: ED 17:02
DX: R07.1 Chest pain on breathing (principal); F17.210 Nicotine dependence, cigarettes, uncomplicated; Z79.899 Other long term (current) drug therapy
CPT/HCPCS: 36415; 80053; 83690; 84484; 85025; 93005; 99283; 99284

== ENCOUNTER 2023-03-04 08:49 | Outpatient (CLI) | payer OTHER ==
[2023-03-04] MEDS ORDERED: iohexoL-300 100 ML VIAL IVP ONE (16:22)
[2023-03-04] MEDS ORDERED: DIATRIZOATE MEGLU/DIATRIZO SOD 30 ML BOTTLE PO ONE (16:23)
--- NOTE | 2023-03-04 19:17 | CT Report ---
PROCEDURE: CHEST WO INDICATIONS: CHEST PAIN, NICOTINE DEPENDENCE, UPEER ABD PAIN TECHNIQUE: Noncontrast 1mm axial images were acquired from the pulmonary apices to the posterior costophrenic an gles. Axial 5 mm soft tissue kernel reconstructions were performed as well as 8 mm axial MIP and cor onal and sagittal 5 mm reformations. For radiation dose reduction, the following was used: automate d exposure control, adjustment of mA and/or kV according to patient size. COMPARISON: None FINDINGS: Image quality: Excellent. Lungs and pleura: Right fissure solid pulmonary nodule versus lymph node measuring 4 mm (3/180). Left fissure or solid pulmonary nodule versus lymph node measuring 2 mm (3/184). Left lower lobe solid pu lmonary nodule measuring 2 mm (8/270). No consolidation. No pleural effusions. No pneumothorax. Mediastinum: Heart size is normal. No pericardial effusion. No large vessel abnormality. No mediastin al adenopathy by size criteria. Mild coronary vessel calcification of the LAD (2/40). Chest wall and lower neck: Thyroid is unremarkable. No axillary or supraclavicular adenopathy by size . Bones: No aggressive osseous abnormality. No acute fractures. Mild multilevel degenerative changes of the spine. Upper Abdomen: Please see same-day CT abdomen. IMPRESSION: 1.A few scattered pulmonary nodules measuring up to 4 mm. -Fleischner guidelines: If patient is low risk, no additional follow-up needed. If patient at high ri sk, consider repeat CT chest in 12 months. 2. Mild LAD coronary vessel calcification, premature given patient's age. Correlate with risk factors . Reviewed by: Gabriele Huff MD on 03/04/2023 7:16 PM PST Approved by: Gabriele Huff MD on 03/04/2023 7:16 PM PST Station ID: [id number]
--- NOTE | 2023-03-04 22:46 | CT Report ---
PROCEDURE: ABDOMEN W INDICATIONS: CHEST PAIN, NICOTINE DEPENDENCE, UPER ABD PAIN CONTRAST: 100ml o mn i 300 TECHNIQUE: After the administration of oral and intravenous contrast, 5 mm thick sections acquired from the diap hragms to the iliac crests. 5 mm thick coronal and sagittal reformats were acquired. For radiation dose reduction, the following was used: automated exposure control, adjustment of mA and/or kV accor ding to patient size. COMPARISON: None. FINDINGS: Image quality: Excellent. Lung bases and heart: Please see separate report for dedicated CT chest obtained same day. Liver: Multiple scattered subcentimeter hepatic hypodensities are incompletely characterized but like ly representing cysts or hemangiomas. Mild hepatic steatosis. Gallbladder and biliary tree: No radiopaque stones or wall thickening. No biliary dilation. Spleen: No splenomegaly. Pancreas: No pancreatic ductal dilation. Adrenals: No adrenal nodule. Kidneys and ureters: No hydronephrosis. No renal cystic lesion which requires follow up. No solid mas s. Bowel and peritoneum: No bowel distension. No pathologic free fluid. Large amount of fecal material s een throughout the imaged segments of the colon. No wall thickening. Visualized small bowel appear wi thin normal limits. No evidence for bowel obstruction or acute inflammatory changes. Lymph nodes: No central or retroperitoneal adenopathy. Vessels: No infrarenal aortic aneurysm. Scattered atherosclerotic calcifications of the abdominal aor ta. Bones: No aggressive osseous abnormality. No acute compression fracture. Other: No significant ventral hernia. IMPRESSION: 1. CT abdomen without acute abnormalities. Incidental note of large amount of fecal material seen thr oughout the imaged colon which may represent constipation. No evidence for acute inflammatory process or bowel obstruction. 2. Hepatic steatosis. 3. A few scattered subcentimeter hepatic hypodensities likely representing cysts or hemangiomas. 4. Atherosclerotic vascular disease. Reviewed by: Aron Carreon MD on 03/04/2023 10:45 PM PST Approved by: Aron Carreon MD on 03/04/2023 10:45 PM PST Station ID: [id number]
== END 2023-03-04 08:50 | disposition home or self-care (01) ==
LOC: DI 08:49
PROVIDERS: ATTEND Nurse Practitioner Family
DX: R10.10 Upper abdominal pain, unspecified (principal); R63.4 Abnormal weight loss; R07.89 Other chest pain; F17.200 Nicotine dependence, unspecified, uncomplicated; R10.13 Epigastric pain; K76.0 Fatty (change of) liver, not elsewhere classified; I70.90 Unspecified atherosclerosis; R91.8 Other nonspecific abnormal finding of lung field; I25.10 Atherosclerotic heart disease of native coronary artery without angina pectoris
CPT/HCPCS: 71250; 74160; Q9963; Q9967

== ENCOUNTER 2023-03-26 09:09 | Outpatient (CLI) | payer OTHER ==
[2023-03-26 19:01] LABS: BASOPHILS # (AUTO) 0.1 10^3/uL (0.0-0.1); BASOPHILS % (AUTO) 1.3 %; EOSINOPHILS # (AUTO) 0.3 10^3/uL (0.0-0.7); EOSINOPHILS % (AUTO) 4.5 %; HCT - HEMATOCRIT 46.9 % (42.0-52.0); HGB - HEMOGLOBIN 15.4 g/dL (14.0-18.0); LYMPHOCYTES # (AUTO) 2.1 10^3/uL (1.5-3.5); MEAN CORPUSCULAR HEMOGLOBIN 30.4 pg (27.0-31.0); MEAN CORPUSCULAR HGB CONC 32.8 g/dL (32.0-36.0); MEAN CORPUSCULAR VOLUME 92.7 fL (80.0-94.0); MEAN PLATELET VOLUME 10.5 fL (7.4-11.4); MONOCYTES # (AUTO) 0.4 10^3/uL (0.0-1.0); MONOCYTES % (AUTO) 6.8 %; NEUTROPHILS # (AUTO) 3.1 10^3/uL (1.5-6.6); NEUTROPHILS % (AUTO) 52.2 %; PLT - PLATELET COUNT 246 10^3/uL (130-450); RED BLOOD COUNT 5.06 10^6/uL (4.70-6.10); RED CELL DISTRIBUTION WIDTH 12.4 % (12.0-15.0)
[2023-03-26 19:21] LABS: ALBUMIN 4.7 g/dL (3.2-5.5); ALKALINE PHOSPHATASE 81 IU/L (42-121); ALT ALANINE AMINOTRANSFERASE 26 IU/L (10-60); AST ASPARTATE AMINOTRANSFERASE 21 IU/L (10-42); BILIRUBIN,TOTAL 0.7 mg/dL (0.2-1.0); BUN - BLOOD UREA NITROGEN 22 mg/dL (6-20); CALCIUM 9.6 mg/dL (8.5-10.3); CARBON DIOXIDE - CO2 31 mmol/L (21-32); CHLORIDE 106 mmol/L (101-111); CHOL/HDL RATIO 2.6 (<5.0); CHOLESTEROL 157 mg/dL; CREATININE 0.9 mg/dL (0.6-1.3); CRP - C-REACTIVE PROTEIN < 0.5 mg/dL (<0.5); GFR - MDRD 90 (>89); GLUCOSE 97 mg/dL (74-104); HDL CHOLESTEROL 61 mg/dL; LDL CHOLESTEROL,CALCULATED 84 mg/dL; LDL/HDL RATIO 1.4 (<3.6); POTASSIUM 4.3 mmol/L (3.5-4.5); SODIUM 141 mmol/L (135-145); TOTAL PROTEIN 7.1 g/dL (6.4-8.9); TRIGLYCERIDES 59 mg/dL (48-352); VLDL CHOLESTEROL 12 mg/dL
[2023-03-26 19:30] LABS: THYROID STIMULATING HORMONE 0.84 uIU/mL (0.34-5.60)
[2023-03-26 19:34] LABS: RHEUMATOID FACTOR NEGATIVE (Negative)
[2023-03-26 22:34] LABS: ESTIMATED AVERAGE GLUCOSE 103 mg/dL (70-100); HEMOGLOBIN A1c% 5.2 % (4.27-6.07)
[2023-03-30 13:09] LABS: T-TRANSGLUTAMINASE (TTG) IGA <2 U/mL (0-3); T-TRANSGLUTAMINASE (TTG) IGG <2 U/mL (0-5)
[2023-03-30 15:08] LABS: ANTINUCLEAR ANTIBODIES IFA Negative (.)
== END 2023-03-26 09:10 | disposition home or self-care (01) ==
LOC: LAB.N 09:09
PROVIDERS: ATTEND Nurse Practitioner Family
DX: R10.13 Epigastric pain (principal); R10.10 Upper abdominal pain, unspecified; R63.4 Abnormal weight loss; F17.200 Nicotine dependence, unspecified, uncomplicated; R07.89 Other chest pain; R94.31 Abnormal electrocardiogram [ECG] [EKG]; M25.50 Pain in unspecified joint
CPT/HCPCS: 36415; 80053; 80061; 83036; 83721; 84443; 85025; 85651; 86038; 86140; 86364; 86430

== ENCOUNTER 2023-05-28 10:29 | Outpatient (CLI) | payer OTHER | END 2023-05-28 23:59 | disposition short-term general hospital (02) | LOC: EMS 10:29 | DX: R07.9 Chest pain, unspecified (principal) | CPT/HCPCS: A0425; A0427 ==